=== PATIENT | female | born 2000 | race Two or more races ===

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

== ENCOUNTER 2022-01-06 07:16 | Outpatient (CLI) | payer MEDICAID, SELFPAY ==
--- NOTE | 2022-01-06 07:27 | US_ITS ---
WS: [id number] TRANSABDOMINAL PELVIC ULTRASOUND HISTORY: AMENORRHEA/abnormal FACIAL HAIR COMPARISON: None available. Uterus: 8.6 cm x 3.8 cm x 2.4 cm. Normal size and echogenicity. No fibroids are identified. Endometrium: 1.0 cm. Normal homogeneity and size. Right ovary: 2.9 cm x 2.3 cm x 2.5 cm; no solid or cystic mass. Normal vascularity. Left ovary: 3.2 cm x 3.3 cm x 2.0 cm; no solid or cystic mass. Normal vascularity. No free fluid in the cul-de-sac. US/US pelvic complete* [id number] IMPRESSION: Unremarkable transabdominal pelvic ultrasound. No evidence for polycystic ovari an disease.
== END 2022-01-06 07:17 | disposition home or self-care (01) ==
LOC: RAD 07:16
PROVIDERS: PCP Nurse Practitioner Family; Visit Provider Nurse Practitioner Family
DX: N91.2 Amenorrhea, unspecified (principal); L67.8 Other hair color and hair shaft abnormalities
CPT/HCPCS: 76856

== ENCOUNTER → 2022-01-12 09:34 | Outpatient (BNVA) | payer OTHER, SELFPAY | PROVIDERS: PCP Nurse Practitioner Family; Visit Provider Psychiatry & Neurology Psychiatry | DX: F32.9 Major depressive disorder, single episode, unspecified (principal); Z79.899 Other long term (current) drug therapy | CPT/HCPCS: 80053; 80061; 83036; 84443 ==

== ENCOUNTER 2022-10-06 08:09 | Outpatient (CLI) | payer OTHER, MEDICAID, SELFPAY ==
--- NOTE | 2022-10-06 08:32 | CT_ITS ---
WS: [id number] CT HEAD TECHNIQUE: Noncontrast CT of the head obtained from the skullbase to the vertex. CLINICAL INFORMATION: MEMORY LOSS/OTHER AMNESIA COMPARISON: None. DLP: 1019.[address] scans at [facility] use at least one of these dose optimization techniques: automated e xposure control; mA and/or kV adjustment per patient size (includes targeted exams where dose is matc hed to clinical indication); or iterative reconstruction. FINDINGS: No evidence of intracranial hemorrhage or mass effect. Ventricular system and basal cisterns are barron nt. No extra-axial fluid collections. No evidence of mass or mass effect. Normal cormier-white different iation. Paranasal sinuses and mastoid air cells are well aerated. .Normal visualized soft tissues. CT/CT head wo con* [id number] IMPRESSION: 1. No evidence of intracranial hemorrhage or mass effect. 2. Normal cormier-white differentiation. 3. No acute intracranial findings.
== END 2022-10-06 08:10 | disposition home or self-care (01) ==
PROVIDERS: PCP Nurse Practitioner Family; Visit Provider Nurse Practitioner Family
DX: R41.3 Other amnesia (principal)
CPT/HCPCS: 70450

== ENCOUNTER → 2023-01-20 10:47 | Outpatient (BNVA) | payer OTHER, MEDICAID, SELFPAY | PROVIDERS: PCP Nurse Practitioner Family; Referring Provider Nurse Practitioner Family; Visit Provider Psychiatry & Neurology Neurology | DX: R41.3 Other amnesia (principal) | CPT/HCPCS: 36415; 82607; 82746; 84439; 84443; 84481; 85651; 86140; 86160; 86162; 86235; 86255; 86376; 86431 ==

== ENCOUNTER 2023-02-17 07:31 | Outpatient (CLI) | payer MEDICAID, SELFPAY ==
--- NOTE | 2023-02-17 08:00 | MR_ITS ---
WS: [id number] MRI BRAIN WITH AND WITHOUT CONTRAST HISTORY: R41.3 - Other amnesia COMPARISON: Noncontrast CT head 10/06/2022 TECHNIQUE: Multiplanar imaging performed through the brain with MultiHance 20 ml's IV. No acute infarcts are seen. Rizvi-white matter differentiation is well preserved. Normal hippocampal f ormations. No susceptibility artifacts or prior lacunar infarcts. Ventricles and extra-axial spaces are normal. Clivus and pituitary gland are normal. Visualized posterior fossa and brainstem are also normal. Postcontrast images are negative for masses or vascular malformations. Dural venous sinuses are normal. Paranasal sinuses: Well aerated with no significant disease. Mastoid air cells: Normal. Calvarium and scalp: Normal. IMPRESSION: 1. Normal MRI brain with contrast. 2. No acute infarct or prior infarcts. Normal hippocampal formations.
[2023-02-17] MEDS: gadobenate dimeglumine 20 mL vial IV (08:59)
== END 2023-02-17 07:32 | disposition home or self-care (01) ==
LOC: RAD 07:32
PROVIDERS: PCP Nurse Practitioner Family; Visit Provider Specialist
DX: R41.3 Other amnesia (principal)
CPT/HCPCS: 70553; A9577

== ENCOUNTER → 2023-03-03 08:21 | Outpatient (BNVA) | payer OTHER, MEDICAID, SELFPAY | PROVIDERS: PCP Nurse Practitioner Family; Visit Provider Psychiatry & Neurology Psychiatry | DX: F32.9 Major depressive disorder, single episode, unspecified (principal); Z79.899 Other long term (current) drug therapy | CPT/HCPCS: 80061; 83036 ==